=== PATIENT | male | born 1950 | race African-American/Black ===

== ENCOUNTER 2019-03-30 20:35 | Inpatient (IN) | payer OTHER ==
--- NOTE | 2019-03-31 04:24 | HP ---
"COWS - Scale Resting Pulse: 0= [place] 80 or Below Sweatin=Flushed/Facial Moisture Restless Observation: 1= Difficult to Sit Still Pupil Size: 2= Moderately Dilated (Pupils = 4 mm) Bone or Joint Aches: 0= None Runny Nose/ Eye Tearin= Nasal Congestion GI Upset > 30mins: 2= Nausea/Diarrhea Tremor Observation: 2= Slight Tremor Visible Yawning Observation: 1= 1-2x During Session Anxiety or Irritability: 1=Feels Anxious/Irritable Goose Flesh Skin: 0=Smooth Skin COWS Score: 12 CIWA Score - Admission Criteria [facility]ASAS Guidelines: Admission for Medically Managed Detox: Requires at least one of the followin. CIWA greater than 12 2. Seizures within the past 24 hours 3. Delirium tremens within the past 24 hours 4. Hallucinations within the past 24 hours 5. Acute intervention needed for co occurring medical disorder 6. Acute intervention needed for co occurring psychiatric disorder 7. Severe withdrawal that cannot be handled at a lower level of care (continued vomiting, continued diarrhea, abnormal vital signs) requiring intravenous medication and/or fluids 8. Admission ROS [facility] Chief Complaint: Heroin withdrawal. Allergies/Adverse Reactions: Allergies Allergy/AdvReac Type Severity Reaction Status Date / Time No Known Allergies Allergy Verified 03/31/19 04:24 History of Present Illness: First admission for this 68 yom who is here for detox from heroin Heroin use began at age 22. Uses nasally. Current use 5-6 bags daily. Unable to stop on own for more than a couple of days. Last detox approx 15 years ago. Denies overdoses, seizures, or blackouts. Denies alcohol. Denies other illicit substances. PMHx: osteoarthritis MHHx:Insomnia, Denies depression. Denies thoughts of harming self or others. .Search Terms: Erika Tamayo, 1950 Search Date: 03/31/2019 04:22:28 AM The Drug Utilization Report below displays all of the controlled substance prescriptions, if any, that your patient has filled in the last twelve months. The information displayed on this report is compiled from pharmacy submissions to the Department, and accurately reflects the information as submitted by the pharmacies. This report was requested by: Betsy Galan | Reference #: [id number] There are no results for the search terms that you entered. Search Terms: Erika Tamayo, 1950 Search Date: 03/31/2019 04:22:56 AM States Searched: [place], [place], [place], [place], [place], [place], [place] The Drug Utilization Report below displays the controlled substance prescriptions, if any, that were dispensed in the indicated state(s). The information displayed on this report is compiled from requests submitted to other states' PMPs, and accurately reflects the information as returned by them. Blank diggs indicate data not provided by other state. This report was requested by: Betsy Galan | Reference #: [id number] Exam Limitations: No Limitations - Ebola screening Have you traveled outside of the country in the last 21 days: No (N) Have you had contact with anyone from an Ebola affected area: No Have you been sick,other than usual withdrawal symptoms: No (Denies recent exposure to measles) Do you have a fever: No - Review of Systems Constitutional: Chills, Diaphoresis EENT: reports: Cataracts (Early cataracts.), Blurred Vision, Nose Congestion Respiratory: reports: No Symptoms reported Cardiac: reports: No Symptoms Reported GI: reports: Diarrhea, Nausea : reports: No Symptoms Reported Musculoskeletal: reports: Other (Arthrits (R) limbs) Integumentary: reports: No Symptoms Reported Neuro: reports: No Symptoms reported Endocrine: reports: No Symptoms Reported Hematology: reports: No Symptoms Reported Psychiatric: reports: Judgement Intact, Orientated x3 Patient History - PPD History Previous Implant?: Yes Documented Results: Negative w/o proof Implanted On Prior [facility] Admission?: Yes PPD to be Administered?: Yes - Smoking Cessation Smoking history: Current every day smoker Have you smoked in the past 12 months: Yes Cigars Per Day: 4 Hx Chewing Tobacco Use: No Initiated information on smoking cessation: Yes 'Breaking Loose' booklet given: 03/31/19 - Substance & Tx. History Hx Alcohol Use: No Hx Substance Use: Yes Substance Use Type: Heroin Hx Substance Use Treatment: Yes (detox - years) Admission Physical Exam BHS - Physical General Appearance: Yes: Nourished, Mild Distress, Tremorous, Sweating ( Increased facial moisture), Anxious HEENTM: Yes: EOMI, Hearing grossly Normal, Normocephalic, Normal Voice, JADA ( Pupils = 4 mm), Pharynx Normal Respiratory: Yes: Lungs Clear, Normal Breath Sounds, No Respiratory Distress Neck: Yes: No masses,lesions,Nodules, Supple Breast: Yes: Breast Exam Deferred Cardiology: Yes: Regular Rhythm, S1, S2, Murmur Abdominal: Yes: Non Tender, Flat, Soft, Increased Bowel Sounds Genitourinary: Yes: Within Normal Limits Back: Yes: Normal Inspection Musculoskeletal: Yes: full range of Motion, Gait Steady Extremities: Yes: Normal Capillary Refill, Normal Range of Motion, Tremors Neurological: Yes: structures engineer II-XII NML intact, Fully Oriented, Alert, Motor Strength 5/5, Normal Mood/Affect Integumentary: Yes: Normal Color, Warm, Rash (Generalized rash w/ dry patches) Lymphatic: Yes: Within Normal Limits - Diagnostic (1) Opioid dependence with withdrawal Current Visit: Yes Status: Acute (2) Elevated blood-pressure reading without diagnosis of hypertension Current Visit: Yes Status: Acute (3) Rash and nonspecific skin eruption Current Visit: Yes Status: Chronic (4) Murmur, cardiac Current Visit: Yes Status: Chronic (5) Dehydration Current Visit: Yes Status: Acute Cleared for Admission [facility] - Detox or Rehab [facility] Level of Care: Medically Managed Detox Regimen/Protocol: Methadone Claeared for Rehab Admission: No Inpatient Rehab Admission - Rehab Decision to Admit Inpatient rehab admission?: No"
[2019-03-31] MEDS ORDERED: MAGNESIUM CITRATE 300 ML BOTTLE PO PRN (04:43)
[2019-03-31] MEDS ORDERED: METHADONE HCL 10 MG TABLET (FOR DETOX USE ONLY) PO ONE ×2 (04:43→14:00)
[2019-03-31] MEDS ORDERED: cloNIDine HCL 0.1 MG TABLET PO PRN (04:43)
[2019-03-31] MEDS ORDERED: MAG HYDROX/AL HYDROX/SIMETH 30 ML UNIT-DOSE CUP PO PRN (04:43)
[2019-03-31] MEDS ORDERED: IBUPROFEN 400 MG TABLET (FP) PO PRN (04:43)
[2019-03-31] MEDS ORDERED: NICOTINE POLACRILEX 2 MG GUM BUC PRN (04:43)
[2019-03-31] MEDS ORDERED: clonazePAM 0.5 MG TABLET PO PRN (04:43)
[2019-03-31] MEDS ORDERED: BISMUTH SUBSALICYLATE 524 MG/30 ML UD PO PRN (04:43)
[2019-03-31] MEDS ORDERED: MENTHOL/PHENOL 1 EACH UD MM PRN (04:43)
[2019-03-31] MEDS ORDERED: ACETAMINOPHEN 325 MG TABLET (FP) PO PRN ×2 (04:43)
[2019-03-31] MEDS ORDERED: METHOCARBAMOL 500 MG TABLET PO PRN (04:43)
[2019-03-31] MEDS ORDERED: MAGNESIUM HYDROX 2400MG/30ML ORAL SUSPENSION 30 ML CUP PO PRN (04:43)
--- NOTE | 2019-03-31 09:37 | EKG ---
Test Reason : Blood Pressure : / mmHG Vent. Rate : 055 BPM Atrial Rate : 055 BPM P-R Int : 160 ms QRS Dur : 084 ms QT Int : 474 ms P-R-T Axes : 000 055 030 degrees QTc Int : 453 ms SINUS BRADYCARDIA VOLTAGE CRITERIA FOR LEFT VENTRICULAR HYPERTROPHY ABNORMAL ECG NO PREVIOUS ECGS AVAILABLE Confirmed by EMANUEL RUIZ, TRIXIE ([id number]) on 03/31/2019 9:37:28 AM Referred By: LORA SHAH Confirmed By:TRIXIE CASTELLANOS MD
[2019-03-31] MEDS: NICOTINE 14 MG/24 HOURS TOPICAL PATCH TD SCH (10:19)
[2019-03-31] MEDS: PRENATAL VITAMINS W/ FOLIC ACID TABLET (FP) PO SCH (10:19)
[2019-03-31] MEDS ORDERED: PNEUMOC 13-VAL CONJ-DIP CRM/PF 0.5 ML DISP.SYRIN IM ONE (12:00)
[2019-03-31 15:19] LABS: EPI CELLS 8.7 /HPF (0-5/HPF); HYALINE CASTS 15 /lpf (0-8); PH,URINE 6.5 (5.0-8.0); URINE APPEARANCE CLEAR; URINE BACTERIA 2.9 /hpf (NEGATIVE); URINE BILIRUBIN NEGATIVE (NEGATIVE); URINE COLOR DK YELLOW; URINE GLUCOSE (UA) NEGATIVE (NEGATIVE); URINE KETONE NEGATIVE (NEGATIVE); URINE LEUK ESTERASE 2+ (NEGATIVE); URINE NITRITE NEGATIVE (NEGATIVE); URINE PROTEIN NEGATIVE (NEGATIVE); URINE RBC 1 /hpf (0-4); URINE WBC 24 /hpf (0-5)
--- NOTE | 2019-03-31 15:21 | PN ---
BHS COWS - Scale Resting Pulse: 0= [place] 80 or Below Sweatin= Chills/Flushing Restless Observation: 1= Difficult to Sit Still Pupil Size: 1= Pupils >than Normal Bone or Joint Aches: 1= Mild Discomfort Runny Nose/ Eye Tearin= Nasal Congestion GI Upset > 30mins: 0= None Tremor Observation of Outstretched Hands: 1= Tremor [place], Not Seen Yawning Observation: 1= 1-2x During Session Anxiety or Irritability: 2=Irritable/Anxious Goose Flesh Skin: 0=Smooth Skin COWS Score: 9 BHS Progress Note (SOAP) Subjective: feeling better requests for soap and eucerin cream good self care management ensure bid Objective: 03/31/19 15:20 Vital Signs Temperature 99.0 F 03/31/19 13:29 Pulse Rate 63 03/31/19 13:29 Respiratory Rate 18 03/31/19 13:29 Blood Pressure 142/87 03/31/19 13:29 O2 Sat by Pulse Oximetry (%) Laboratory Last Values Urine Color Dk yellow 03/31/19 11:30 Urine Appearance Clear 03/31/19 11:30 Urine pH 6.5 (5.0-8.0) 03/31/19 11:30 Ur Specific [place] 1.021 (1.010-1.035) 03/31/19 11:30 Urine Protein Negative (NEGATIVE) 03/31/19 11:30 Urine Glucose (UA) Negative (NEGATIVE) 03/31/19 11:30 Urine Ketones Negative (NEGATIVE) 03/31/19 11:30 Urine Blood Negative (NEGATIVE) 03/31/19 11:30 Urine Nitrite Negative (NEGATIVE) 03/31/19 11:30 Urine Bilirubin Negative (NEGATIVE) 03/31/19 11:30 Urine Urobilinogen 1.0 mg/dL (0.2-1.0) 03/31/19 11:30 Ur Leukocyte Esterase 2+ (NEGATIVE) H 03/31/19 11:30 Urine WBC (Auto) 24 /hpf (0-5) 03/31/19 11:30 Urine RBC (Auto) 1 /hpf (0-4) 03/31/19 11:30 Urine Casts (Auto) 15 /lpf (0-8) 03/31/19 11:30 U Epithel Cells (Auto) 8.7 /HPF (0-5/HPF) 03/31/19 11:30 Urine Bacteria (Auto) 2.9 /hpf (NEGATIVE) 03/31/19 11:30 03/31/19 15:20 lab ordered 04/01/19 Assessment: 03/31/19 15:21 withdrawal sx Plan: continue detox
[2019-03-31] MEDS: MELATONIN 5 MG TABLETS PO PRN (22:11)
[2019-03-31] MEDS: THIAMINE HCL 100 MG TABLET (FP) PO SCH (22:11)
[2019-04-01] MEDS ORDERED: traZODone HCL 50 MG TABLET (FP) PO PRN (09:55)
[2019-04-01] MEDS ORDERED: METHADONE HCL 5 MG TABLET (FOR DETOX USE ONLY) PO ONE (10:00)
[2019-04-01 10:21] LABS: HEMATOCRIT 41.5 % (35.4-49); HEMOGLOBIN 14.3 GM/dL (11.7-16.9); MCH 36.3 pg (25.7-33.7); MCHC 34.3 g/dl (32.0-35.9); MEAN CELL VOLUME 105.8 fl (80-96); MEAN PLT VOLUME 7.6 fl (7.5-11.1); PLATELET COUNT 229 K/MM3 (134-434); RBC 3.92 M/mm3 (4.00-5.60); RDW 15.1 % (11.9-15.9); WHITE BLOOD COUNT 6.7 K/mm3 (4.0-10.0)
[2019-04-01] MEDS: PRENATAL VITAMINS W/ FOLIC ACID TABLET (FP) PO SCH (10:28)
[2019-04-01] MEDS: NICOTINE 14 MG/24 HOURS TOPICAL PATCH TD SCH (10:28)
[2019-04-01 10:36] LABS: ALBUMIN 3.3 g/dl (3.4-5.0); BILIRUBIN,TOTAL 1.2 mg/dL (0.2-1); CALCIUM 9.5 mg/dL (8.5-10.1); CREATININE 1.1 mg/dL (0.55-1.3); POTASSIUM 4.1 mmol/L (3.5-5.1); TOT PROT 7.3 g/dl (6.4-8.2)
--- NOTE | 2019-04-01 16:51 | PN ---
BHS COWS - Scale Resting Pulse: 0= [place] 80 or Below Sweatin= Chills/Flushing Restless Observation: 1= Difficult to Sit Still Pupil Size: 0= Normal to Room Light Bone or Joint Aches: 0= None Runny Nose/ Eye Tearin= None GI Upset > 30mins: 1= Stomach Cramp Tremor Observation of Outstretched Hands: 0= None Yawning Observation: 1= 1-2x During Session Anxiety or Irritability: 2=Irritable/Anxious Goose Flesh Skin: 3=Piloerection COWS Score: 9 BHS Progress Note (SOAP) Subjective: Sweating, Chills, Stomach cramping, Interrupted Sleep, Poor Appetite. Objective: PATIENT A & O X 3, OBSERVED AMBULATING ON UNIT UNASSISTED. IN NO ACUTE DISTRESS. PATIENT DENIES KNOWN HISTORY OF HTN. 04/01/19 16:48 Vital Signs Temperature 96.4 F L 04/01/19 14:12 Pulse Rate 60 04/01/19 14:12 Respiratory Rate 18 04/01/19 14:12 Blood Pressure 162/87 04/01/19 14:12 O2 Sat by Pulse Oximetry (%) Laboratory Tests 03/31/19 04/01/19 04/01/19 11:30 07:30 08:00 WBC 6.7 RBC 3.92 L Hgb 14.3 Hct 41.5 MCV 105.8 H MCH 36.3 H MCHC 34.3 RDW 15.1 Plt Count 229 MPV 7.6 Sodium Potassium Chloride Carbon Dioxide Anion Gap BUN Creatinine Est GFR (CKD-EPI)AfAm Est GFR (CKD-EPI)NonAf Random Glucose Calcium Total Bilirubin AST ALT Alkaline Phosphatase Total Protein Albumin Urine Color Dk yellow Urine Appearance Clear Urine pH 6.5 Ur Specific [place] 1.021 Urine Protein Negative Urine Glucose (UA) Negative Urine Ketones Negative Urine Blood Negative Urine Nitrite Negative Urine Bilirubin Negative Urine Urobilinogen 1.0 Ur Leukocyte Esterase 2+ H Urine WBC (Auto) 24 Urine RBC (Auto) 1 Urine Casts (Auto) 15 U Epithel Cells (Auto) 8.7 U Sm Round Cell (Auto) Rare Urine Bacteria (Auto) 2.9 RPR Titer Nonreactive 04/01/19 08:00 WBC RBC Hgb Hct MCV MCH MCHC RDW Plt Count MPV Sodium 137 Potassium 4.1 Chloride 102 Carbon Dioxide 26 Anion Gap 8 BUN 16 Creatinine 1.1 Est GFR (CKD-EPI)AfAm 79.52 Est GFR (CKD-EPI)NonAf 68.61 Random Glucose 111 H Calcium 9.5 Total Bilirubin 1.2 H AST 122 H ALT 112 H Alkaline Phosphatase 174 H Total Protein 7.3 Albumin 3.3 L Urine Color Urine Appearance Urine pH Ur Specific [place] Urine Protein Urine Glucose (UA) Urine Ketones Urine Blood Urine Nitrite Urine Bilirubin Urine Urobilinogen Ur Leukocyte Esterase Urine WBC (Auto) Urine RBC (Auto) Urine Casts (Auto) U Epithel Cells (Auto) U Sm Round Cell (Auto) Urine Bacteria (Auto) RPR Titer LABS NOTED. Assessment: 04/01/19 16:48 WITHDRAWAL SYMPTOMS. ELEVATED LIVER ENZYMES. ELEVATED BP WITHOUT DIAGNOSIS OF HYPERTENSION. Plan: CONTINUE DETOX. INCREASE DAILY PO FLUID / WATER INTAKE. CLONIDINE, 0.1 MG PO BID FOR WITHDRAWAL SYMPTOMS AND FOR ELEVATED BP. PRN TRAZODONE, 50 MG PO HS FOR INSOMNIA (PATIENT REPORTS LIMITED EFFECT FROM PRN MELATONIN PO). REPEAT UA FOR ADMISSION UA ABNORMALITIES.
[2019-04-01] MEDS: THIAMINE HCL 100 MG TABLET (FP) PO SCH (22:57)
[2019-04-01] MEDS: cloNIDine HCL 0.1 MG TABLET PO SCH (22:57)
[2019-04-01] MEDS: MELATONIN 5 MG TABLETS PO PRN (22:57)
[2019-04-02] MEDS ORDERED: METHADONE HCL 10 MG TABLET (FOR DETOX USE ONLY) PO ONE (10:00)
[2019-04-02] MEDS: PRENATAL VITAMINS W/ FOLIC ACID TABLET (FP) PO SCH (10:26)
[2019-04-02] MEDS: NICOTINE 14 MG/24 HOURS TOPICAL PATCH TD SCH (10:27)
[2019-04-02] MEDS: cloNIDine HCL 0.1 MG TABLET PO SCH ×2 (10:27→22:16)
--- NOTE | 2019-04-02 15:49 | PN ---
BHS COWS - Scale Resting Pulse: 0= [place] 80 or Below Sweatin= Chills/Flushing Restless Observation: 1= Difficult to Sit Still Pupil Size: 0= Normal to Room Light Bone or Joint Aches: 0= None Runny Nose/ Eye Tearin= None GI Upset > 30mins: 0= None Tremor Observation of Outstretched Hands: 1= Tremor [place], Not Seen Yawning Observation: 1= 1-2x During Session Anxiety or Irritability: 2=Irritable/Anxious Goose Flesh Skin: 3=Piloerection COWS Score: 9 BHS Progress Note (SOAP) Subjective: Sweating, Chills, Anxious. Patient reports that withdrawal symptoms in general have subsided considerably since yesterday. Objective: PATIENT A & O X 3, OBSERVED AMBULATING ON UNIT UNASSISTED. IN NO ACUTE DISTRESS. 04/02/19 16:10 Vital Signs Temperature 99.1 F 04/02/19 13:17 Pulse Rate 54 L 04/02/19 13:17 Respiratory Rate 18 04/02/19 13:17 Blood Pressure 137/85 04/02/19 13:17 O2 Sat by Pulse Oximetry (%) Laboratory Tests 03/31/19 04/01/19 04/01/19 11:30 07:30 08:00 WBC 6.7 RBC 3.92 L Hgb 14.3 Hct 41.5 MCV 105.8 H MCH 36.3 H MCHC 34.3 RDW 15.1 Plt Count 229 MPV 7.6 Sodium Potassium Chloride Carbon Dioxide Anion Gap BUN Creatinine Est GFR (CKD-EPI)AfAm Est GFR (CKD-EPI)NonAf Random Glucose Calcium Total Bilirubin AST ALT Alkaline Phosphatase Total Protein Albumin Urine Color Dk yellow Urine Appearance Clear Urine pH 6.5 Ur Specific [place] 1.021 Urine Protein Negative Urine Glucose (UA) Negative Urine Ketones Negative Urine Blood Negative Urine Nitrite Negative Urine Bilirubin Negative Urine Urobilinogen 1.0 Ur Leukocyte Esterase 2+ H Urine WBC (Auto) 24 Urine RBC (Auto) 1 Urine Casts (Auto) 15 U Epithel Cells (Auto) 8.7 U Sm Round Cell (Auto) Rare Urine Bacteria (Auto) 2.9 RPR Titer Nonreactive 04/01/19 08:00 WBC RBC Hgb Hct MCV MCH MCHC RDW Plt Count MPV Sodium 137 Potassium 4.1 Chloride 102 Carbon Dioxide 26 Anion Gap 8 BUN 16 Creatinine 1.1 Est GFR (CKD-EPI)AfAm 79.52 Est GFR (CKD-EPI)NonAf 68.61 Random Glucose 111 H Calcium 9.5 Total Bilirubin 1.2 H AST 122 H ALT 112 H Alkaline Phosphatase 174 H Total Protein 7.3 Albumin 3.3 L Urine Color Urine Appearance Urine pH Ur Specific [place] Urine Protein Urine Glucose (UA) Urine Ketones Urine Blood Urine Nitrite Urine Bilirubin Urine Urobilinogen Ur Leukocyte Esterase Urine WBC (Auto) Urine RBC (Auto) Urine Casts (Auto) U Epithel Cells (Auto) U Sm Round Cell (Auto) Urine Bacteria (Auto) RPR Titer LABS NOTED. RESULTS OF REPEAT UA PENDING. 04/02/19 16:11 Assessment: 04/02/19 16:10 WITHDRAWAL SYMPTOMS. ELEVATED LIVER ENZYMES. HYPERBILIRUBINEMIA. 04/02/19 16:11 Plan: CONTINUE DETOX. PATIENT SCHEDULED FOR D/C TOMORROW AM.
[2019-04-02 17:57] LABS: EPI CELLS 8.3 /HPF (0-5/HPF); HYALINE CASTS 16 /lpf (0-8); URINE APPEARANCE CLOUDY; URINE BACTERIA 2.5 /hpf (NEGATIVE); URINE BILIRUBIN NEGATIVE (NEGATIVE); URINE COLOR DK YELLOW; URINE GLUCOSE (UA) NEGATIVE (NEGATIVE); URINE KETONE NEGATIVE (NEGATIVE); URINE LEUK ESTERASE 2+ (NEGATIVE); URINE NITRITE NEGATIVE (NEGATIVE); URINE PROTEIN NEGATIVE (NEGATIVE); URINE RBC 3 /hpf (0-4); URINE WBC 33 /hpf (0-5)
[2019-04-02] MEDS: THIAMINE HCL 100 MG TABLET (FP) PO SCH (22:16)
[2019-04-02] MEDS: MELATONIN 5 MG TABLETS PO PRN (22:16)
[2019-04-03] MEDS ORDERED: METHADONE HCL 5 MG TABLET (FOR DETOX USE ONLY) PO ONE (06:00)
[2019-04-03 06:17] VITALS: BP 129/82; PULSE 50; TEMP 99.7
[2019-04-03] MEDS: PRENATAL VITAMINS W/ FOLIC ACID TABLET (FP) PO SCH (10:02)
[2019-04-03] MEDS: NICOTINE 14 MG/24 HOURS TOPICAL PATCH TD SCH (10:02)
[2019-04-03] MEDS: cloNIDine HCL 0.1 MG TABLET PO SCH (10:02)
--- NOTE | 2019-04-03 14:28 | DS ---
[facility] Detox Discharge Summary Admission Date: 03/31/19 Discharge Date: 04/03/19 - History Present History: Opioid Dependence Additional Comments: Pt is medically cleared and is discharged today. Pt has completed his detox protocol. Pt is encouraged to follow-up with [facility] oupatient program and also follow-up with PMD. As per counselor's note, pt will be d/c on 04/03/19 and he has appt with [facility] for recovery ri [place] on 04/05/19. Pt is AOX3, in no acute distress. - Physical Exam Results Vital Signs: Vital Signs Temperature 99.7 F H 04/03/19 06:17 Pulse Rate 50 L 04/03/19 06:17 Respiratory Rate 16 04/03/19 06:17 Blood Pressure 129/82 04/03/19 06:17 O2 Sat by Pulse Oximetry (%) Lab Results WBC 6.7 K/mm3 (4.0-10.0) 04/01/19 08:00 RBC 3.92 M/mm3 (4.00-5.60) L 04/01/19 08:00 Hgb 14.3 GM/dL (11.7-16.9) 04/01/19 08:00 Hct 41.5 % (35.4-49) 04/01/19 08:00 MCV 105.8 fl (80-96) H 04/01/19 08:00 MCHC 34.3 g/dl (32.0-35.9) 04/01/19 08:00 RDW 15.1 % (11.9-15.9) 04/01/19 08:00 Plt Count 229 K/MM3 (134-434) 04/01/19 08:00 Sodium 137 mmol/L (136-145) 04/01/19 08:00 Potassium 4.1 mmol/L (3.5-5.1) 04/01/19 08:00 Chloride 102 mmol/L (98-107) 04/01/19 08:00 Carbon Dioxide 26 mmol/L (21-32) 04/01/19 08:00 Anion Gap 8 MMOL/L (8-16) 04/01/19 08:00 BUN 16 mg/dL (7-18) 04/01/19 08:00 Creatinine 1.1 mg/dL (0.55-1.3) 04/01/19 08:00 Random Glucose 111 mg/dL (74-106) H 04/01/19 08:00 Calcium 9.5 mg/dL (8.5-10.1) 04/01/19 08:00 Labs noted. Pertinent Admission Physical Exam Findings: withdrawal symptoms. - Treatment Hospital Course: Detox Protocol Followed, Detoxed Safely, Responded well, Discharged Condition Good - Medication Discharge Medications: Ambulatory Orders NK [No Known Home Medication] 03/31/19 - Diagnosis (1) Elevated blood-pressure reading without diagnosis of hypertension Status: Acute (2) Opioid dependence with withdrawal Status: Acute (3) Rash and nonspecific skin eruption Status: Chronic - AMA Did Patient Leave Against Medical Advice: No
== END 2019-04-03 08:45 | disposition home or self-care (01) | DRG 897 ==
LOC: YASAS 20:35 → Y3N 03-31 04:55
PROVIDERS: ADMIT Surgery; ATTEND Surgery
PROC: HZ2ZZZZ Detoxification Services for Substance Abuse Treatment (ICD-10-PCS; principal; 2019-03-31)
DX: F11.23 Opioid dependence with withdrawal (principal); F17.210 Nicotine dependence, cigarettes, uncomplicated; E80.6 Other disorders of bilirubin metabolism; E86.0 Dehydration; R94.5 Abnormal results of liver function studies; R21 Rash and other nonspecific skin eruption; R01.1 Cardiac murmur, unspecified
CPT/HCPCS: 36415; 80053; 81003; 85027; 86593; 90670; 93005; 93010; J0735